=== PATIENT | male | born 1990 | race Caucasian/White ===

== ENCOUNTER 2016-03-26 22:22 | Emergency (ER) | payer MEDICAID ==
[~2016-03-26] VITALS: Ht 180.3 cm; Wt 81.8 kg
[2016-03-26 23:40] VITALS: BP 130/70
== END 2016-03-26 23:40 | disposition home or self-care (01) ==
LOC: EMS 22:22
DX: T78.40XA Allergy, unspecified, initial encounter (principal); X58.XXXA Exposure to other specified factors, initial encounter
CPT/HCPCS: 99281